=== PATIENT | female | born 1990 | race Caucasian/White ===

== ENCOUNTER 2020-11-06 14:39 | Emergency (ER) | payer MEDICAID ==
[~2020-11-06] VITALS: Ht 160 cm; Wt 59.0 kg
--- NOTE | 2020-11-06 14:50 | NUR ---
TO ER BED 3, BIB [facility] escorted by Officer Gabe [id number] In custody for OTB, A&OX3, BREATHING EVEN AND UNLABORED
[2020-11-06] MEDS ORDERED: Magnesium 1GM/D5W 100ML PREMIX 200 ML IV ONE (15:00)
[2020-11-06] MEDS ORDERED: ACETAMINOPHEN ES 500 MG TABLET PO ONE (15:00)
[2020-11-06] MEDS ORDERED: IPRATROPIUM NEB FS 0.5 MG/2.5 ML AMPUL.NEB NEB ONE (15:00)
[2020-11-06] MEDS ORDERED: DEXAMETHASONE SOD PHOSPHATE 10 MG/ML VIAL IV ONE (15:00)
[2020-11-06] MEDS ORDERED: ALBUTEROL FS 2.5 MG/3 ML VIAL.NEB CONTNEB ONE (15:00)
[2020-11-06] MEDS ORDERED: IBUPROFEN 600 MG TABLET PO ONE (15:00)
[2020-11-06] MEDS ORDERED: TDAP [DIPH/PERTUSSIS/TET] 0.5 ML VIAL IM ONE ×2 (15:00→15:27)
[2020-11-06] MEDS ORDERED: DEXAMETHASONE SOD PHOSPHATE 10 MG/ML VIAL ONE (15:26)
[2020-11-06] MEDS ORDERED: IBUPROFEN 600 MG TABLET ONE (15:27)
[2020-11-06] MEDS ORDERED: Magnesium 1GM/D5W 100ML PREMIX 100 ML IV ONE (15:27)
[2020-11-06] MEDS ORDERED: ACETAMINOPHEN ES 500 MG TABLET ONE (15:27)
[2020-11-06] MEDS ORDERED: ALBUTEROL FS 2.5 MG/3 ML VIAL.NEB ONE ×2 (15:28→16:49)
[2020-11-06] MEDS ORDERED: IPRATROPIUM NEB FS 0.5 MG/2.5 ML AMPUL.NEB ONE (15:28)
[2020-11-06] MEDS ORDERED: ALBUTEROL FS 2.5 MG/0.5 ML VIAL.NEB NEB ONE (16:30)
--- NOTE | 2020-11-06 17:16 | NUR ---
POLICE OFFICERS AT BEDSIDE
--- NOTE | 2020-11-06 17:36 | NUR ---
MIDLINE REQUESTED, OPERATIONS RESEARCH GROUP MANAGER MADE AWARE.
--- NOTE | 2020-11-06 18:25 | NUR ---
CALLED FOR BED
[2020-11-06] MEDS ORDERED: PRED20TA PO (18:50)
[2020-11-06] MEDS ORDERED: ALBU8.5H8 INH (18:50)
[2020-11-06] MEDS ORDERED: FLUT1DIS3 INH (18:50)
[2020-11-06 18:57] VITALS: BP 123/77
== END 2020-11-06 18:58 | disposition home or self-care (01) ==
LOC: ER 15:37
DX: S20.01XA Contusion of right breast, initial encounter (principal); J44.1 Chronic obstructive pulmonary disease with (acute) exacerbation; F15.10 Other stimulant abuse, uncomplicated; F17.210 Nicotine dependence, cigarettes, uncomplicated; R00.0 Tachycardia, unspecified; I10 Essential (primary) hypertension; V49.49XA Driver injured in collision with other motor vehicles in traffic accident, initial encounter; Y93.89 Activity, other specified; Y92.488 Other paved roadways as the place of occurrence of the external cause; Y99.8 Other external cause status
CPT/HCPCS: 71045; 84703; 90471; 90715; 93005 ×2; 94640 ×3; 96372; 99285; 99406; J1100; J3475